=== PATIENT | male | born 1990 ===

== ENCOUNTER 2020-07-16 01:07 | Emergency (ER) | payer SELFPAY ==
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
[2020-07-16 01:13] VITALS: BP 120/83; PULSE 58; RESP 16; O2SAT 99; BMI 28.1
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
[2020-07-16 01:34] LABS: Basophils % 0.3 %; Eosinophils # 0.1 10^3/uL (0.0-0.8); Eosinophils % 0.7 %; Hematocrit 45.2 % (42.0-52.0); Hemoglobin 15.6 g/dL (11.7-16.6); Lymphocytes # 2.5 10^3/uL (0.8-4.8); Lymphocytes % 34.6 %; Mean Corpuscular HGB Conc 34.5 g/dL (30.0-36.0); Mean Corpuscular Hemoglobin 29.2 pg (28.0-34.0); Mean Corpuscular Volume 84.5 fL (80-94); Mean Platelet Volume 10.3 fL (7.4-10.4); Monocytes # 0.5 10^3/uL (0.2-0.9); Neutrophils # 4.11 10^3/uL (1.8-7.7); Neutrophils % 56.4 %; Nucleated Red Blood Cells % 0 %; Platelet Count 241 10^3/cmm (130-400); Red Blood Count 5.35 10^6/uL (4.1-5.3); Red Cell Distribution Width 11.9 % (12.1-15.1); White Blood Count 7.3 10^3/uL (4.0-10.0)
[2020-07-16] MEDS: iohexol 300 mg/mL 100 mL Btl IV (01:37)
[2020-07-16 01:41] VITALS: BP 123/77; PULSE 78; RESP 16; O2SAT 98
[2020-07-16 01:52] LABS: Alanine Aminotransferase 21 U/L (0-41); Albumin Level 4.2 g/dL (3.5-5.2); Alkaline Phosphatase 101 IU/L (40-130); Anion Gap 14.5 (5-19); Aspartate Amino Transferase 19 U/L (0-40); Blood Urea Nitrogen 14 mg/dL (6-20); Calcium 9.5 mg/dL (8.5-10.5); Carbon Dioxide 28 mmol/L (22-29); Chloride 100 mmol/L (98-107); Creatinine Clr Calc Pharmacy 140.6199; Globulin 3.1 g/dL (1.3-4.6); Glomerular Filtration Rate 115.1 mL/min (90-130); Glucose 103 mg/dL (65-115); Osmolality Calculated 289 mOsm/kg (285-295); Potassium 3.5 mmol/L (3.5-5.1); Sodium 139 mmol/L (136-145); Total Bilirubin 0.9 mg/dL (0.15-1.2); Total Protein 7.3 g/dL (6.6-8.7)
[2020-07-16 02:00] LABS: Alcohol Level < 10 mg/dL (0-10)
[2020-07-16 03:57] VITALS: BP 118/74; PULSE 60; RESP 16; O2SAT 98
[2020-07-16 03:57] LABS: Amphetamines Screen Urine Positive (Negative); Barbiturates Screen Urine Negative (Negative); Benzodiazepines Screen Urine Negative (Negative); Cocaine Screen Urine Negative (Negative); Opiate Screen Urine Negative (Negative); PCP Screen Urine Negative (Negative); THC Screen Urine Negative (Negative)
[2020-07-16 06:51] VITALS: BP 123/78; PULSE 84; RESP 16; O2SAT 98
--- NOTE | 2020-07-16 07:49 | PC.NURSE ---
PT came down to fit Pt for TLSO brace and perform Pt teaching and Pt still very drowsy and not receptive to education at this time. Will alert PT when Pt is more alert.
[2020-07-16 08:15] VITALS: BP 123/34; PULSE 55; RESP 15; O2SAT 100
--- NOTE | 2020-07-16 09:04 | DCPLANNER ---
nurse healthcare manager had message to schedule a follow up appointment for patient with ortho. nurse healthcare manager called the ortho clinic, spoke with Candy, gave clinic patients information. nurse healthcare manager was told that patients information would be printed and reviewed. Clinic will call patient with appointment information.
[2020-07-16 10:30] VITALS: BP 121/45; PULSE 61; RESP 16; O2SAT 100
--- NOTE | 2020-07-20 10:10 | DCPLANNER ---
geotechnical department manager called the ortho clinic to confirm that a follow up appointment had been scheduled. geotechnical department manager spoke with Angel, was told that clinic is unable to reach patient, there are no phone numbers in the chart.
== END 2020-07-16 10:30 | disposition home or self-care (01) ==
PROVIDERS: Emergency Provider Emergency Medicine
DX: S32.010A Wedge compression fracture of first lumbar vertebra, initial encounter for closed fracture (principal); V49.9XXA Car occupant (driver) (passenger) injured in unspecified traffic accident, initial encounter
CPT/HCPCS: 12345; 70450; 70486; 71260; 72125; 74177; 80053; 80306; 80307; 85025; 97760; 99283; 99291; L0456; Q9967